=== PATIENT | male | born 1990 | race American Indian/Alaskan Native ===

== ENCOUNTER 2017-05-24 13:42 | Emergency (ER) | payer OTHER ==
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
[2017-05-24 21:24] VITALS: BP 117/73
== END 2017-05-24 21:30 | disposition home or self-care (01) ==
LOC: ED 13:42
DX: H66.92 Otitis media, unspecified, left ear (principal); F17.200 Nicotine dependence, unspecified, uncomplicated
CPT/HCPCS: 99282